=== PATIENT | male | born 1990 | race Caucasian/White ===

== ENCOUNTER 2018-01-18 18:40 | Inpatient (IN) ==
[2018-01-18] MEDS ORDERED: Naloxone 0.4 MG/ML INJ IVP ONE ×4 (19:13→23:25)
--- NOTE | 2018-01-18 19:15 | Emergency Department Note ---
Overdose - [facility] Narrative Medical decision making narrative: Will continue to give patient, 0.4 mg Narcan q5 minutes, while being monitored on end-tidal CO2, until the patient is no longer somnolent. Patient was started on Narcan drip. Chest x-ray showed bilateral lower lobe infiltrates suggestive of aspiration pneumonia, patient was started on Levaquin drip. Laboratory results are within normal limits, vital signs remained stable, end- tidal CO2 has been ranging from 38-41. Patient was discussed with hospitalist, and will be admitted for further treatment with Levaquin drip and Narcan as needed. Patient is agreeable to this plan, and agrees to stay overnight for further observation and treatment. - Medical Records Medical records reviewed: Yes I reviewed the patient's medical records. - Lab Data Lab results reviewed: Yes I reviewed the patient's lab results. Result diagrams: 01/18/18 20:43 01/18/18 20:43 Lab Results 01/18/18 01/18/18 Range/Units 20:43 20:43 WBC 9.3 (4.3-11.1) K/mcL RBC 4.18 L (4.19-5.50) M/mcL Hgb 13.4 (12.9-16.9) g/dL Hct 38.6 (37.5-50.1) % MCV 92.3 (83.0-100.0) fL MCH 32.1 (28.0-33.3) pg MCHC 34.7 (31.6-35.5) g/dL RDW 14.1 (11.5-14.5) % Plt Count 231 (140-400) K/mcL MPV 10.3 (9.4-12.4) fL Immature Gran % 0.6 (0-4) % Seg Neutrophils % 67.4 % Lymphocytes % 18.9 % Monocytes % 8.7 % Eosinophils % 3.6 % Basophils % 0.8 % Neutrophils # 6.3 (1.6-8.9) K/mcL Lymphocytes # 1.8 (0.6-4.6) K/mcL Monocytes # 0.8 (0.0-1.3) K/mcL Eosinophils # 0.3 (0.0-0.6) K/mcL Basophils # 0.1 (0.0-0.2) K/mcL Sodium 137 (136-145) mEq/L Potassium 3.7 (3.5-5.1) mEq/L Chloride 103 (98-107) mEq/L Carbon Dioxide 29 (23-29) mEq/L BUN 13 (6-20) mg/dL Creatinine 0.64 L (0.70-1.30) mg/dL Est GFR ( Amer) > 60 (> 60) Est GFR (Non-Af Amer) > 60 (> 60) BUN/Creatinine Ratio 20 (6-26) Glucose 88 (70-105) mg/dL Calculated Osmolality 284 (280-300) Calcium 9.0 (8.6-10.3) mg/dL - Radiology Data Radiology results reviewed: Yes I reviewed the patient's radiology results. Chest X-Ray 01/18/18 20:46 IMPRESSION: Bilateral lower lobe infiltrates, concerning for aspiration pneumonia. D/ / Jordon Darnell MD / Jordon Darnell MD Interpreting Provider: Jordon Darnell MD - EKG Data EKG attestation: Yes I reviewed and interpreted this EKG. EKG results narrative: EKG performed on 01/18/2018 at 2124 hrs. normal rate at ventricular rate of 76 bpm, regular rhythm, SD interval at 175, QRS duration 90, QT 380, QTC 450 with normal axis, without evidence of atrial or ventricular hypertrophy, no ST elevation or T-wave changes no Q waves. Early repol shown in V2, V3 consistent with age. When compared to previous EKG there are: no significant changes (EKG on 2016) Interpretation: normal EKG Overdose HPI - General Chief Complaint: ED Overdose Stated Complaint: Overdose Source: EMS Limitations: altered mental status Nursing Notes Reviewed: Yes Vital Signs Reviewed: Yes - History of Present Illness HPI Narrative: 27-year-old male presenting to the emergency department with overdose, per EMS. Per EMS patient was found on the concrete and internally. On arrival EMS administered half Narcan, 0.5 mg, and left nostril. At that point in time the patient opened eyes, pupils very pinpoint, emesis into the squad. 0.5 mg of Narcan was administered again into the right nostril, which really no effect with the patient. At that point in time, it was noted that he would only answer to sternal rub. Blood glucose was taken at 1836, was 91, vitals remained stable during transport. Upon evaluation, patient is somnolent, nonresponsive at this point in time to questioning. Patient oxygen saturation is 99% and vitals are stable at this point in time. History limited per patient presentation. - Related Data Home Medications Medication Instructions Recorded Confirmed Venlafaxine XR (24 HR) [Effexor XR] 150 mg PO DAILY 03/08/16 09/14/17 Previous Rx's Medication Instructions Recorded Acetaminophen [8Hr Arthritis Pain] 650 mg PO Q8H #20 tablet.er 09/14/17 Allergies Allergy/AdvReac Type Severity Reaction Status Date / Time ibuprofen [From Motrin] Allergy Hives Verified 08/18/17 15:24 Limitations: ROS unobtainable due to patients medical condition Past Medical History - Past Medical History Medical history: Reports: no medical history Surgical history: Reports: orthopedic, other Psychiatric history: Reports: anxiety, ADHD, depression, PTSD - Social History Smoking Status: Current every day smoker Smokeless Tobacco Status: No Alcohol use: Reports: occasionally Drug use: Reports: cocaine, opiates, marijuana, methamphetamine, IV Drug Use, prescription drug abuse Physical Exam - General Limitations: other (Somnolent) General appearance: in no apparent distress, appears intoxicated - Head Head exam: normocephalic - Eye Eye exam: Present: miosis - ENT ENT exam: normal exam, normal oropharynx, mucous membranes moist - Neck Neck exam: Present: normal inspection - Chest Chest inspection: Present: normal inspection - Respiratory Respiratory exam: Present: normal lung sounds bilaterally - Cardiovascular Cardiovascular exam: Present: regular rate, normal rhythm - Abdominal Exam Abdominal exam: Present: soft, Non-Tender - Extremities Exam Extremities exam: Present: normal inspection, full ROM. Absent: tenderness, pedal edema - Expanded Lower Extremity Exam Neurovascular/Tendon exam: Present: normal capillary refill Gait: observed and normal - Back Exam Back exam: Present: normal inspection, full ROM - Neurological Exam Neurological exam: Present: oriented X3 (After the Narcan drip patient was alert and oriented prior he was somnolent responsive only to sternal rub and loud voice) - Psychiatric Psychiatric exam: Present: other - Skin Skin exam: Present: warm, dry, intact - Other Other exam information: He was somnolent on until the effects of the Narcan kicked in which case he was slightly agitated and then cooperative Course Course Narrative: On evaluation, patient was somnolent, and given 0.4 mg IV of Narcan at 1920. While in the room, patient's sats are within normal limits, oxygen saturation is 99% With 10 resp per minute. Following Narcan, patient continues to be somnolent. Patient will be re evaluated in 5 minutes. - Reevaluation(s) Reevaluation #1: Following first dose of 0.4 mg Narcan, the patient continues to be somnolent. We will give another dose of 0.4 mg Narcan and reevaluate. Time: 19:39 Reevaluation #2: Patient continues to be somnolent, will give another 0.4 mg Narcan along with 500 mL bolus normal saline. And reevaluate in 5 minutes. Time: 19:58 Reevaluation #3: Patient continues to remain somnolent following the third dose of Narcan. Discussed with pharmacy starting a Narcan drip, will start 2.3 mg drip per hour. End tidal CO2 monitoring has been established. Patient will be admitted , CBC, BMP, chest x-ray and EKG have been ordered Time: 20:17 Additional Reevaluation(s): 2135: patient's chest x-ray showed to have bilateral lower lobe infiltrates suggestive of aspiration pneumonia patient was started on Levaquin. Patient was reevaluated at 2150 hrs. has been on Narcan drip at this point for about 25 minutes, with little change in somnolence. 2200: Patient responded well to Narcan drip and awoke, removed his IV, and asked to use the restroom. He was alert and oriented 3, conversational, ambulating on his own and stated that he remembers taking morphine 15 mg and benzos. He agrees to staying in the hospital, getting another IV, in continuing his Levaquin and narcotic and drip at this time. 2214: Upon reevaluation of the patient, he again was sleeping, and somnolent. 2216: Dr. Casas, spoke with the hospitalist and patient will be admitted at this time for continued Levaquin drip and Narcan. Vital Signs Temperature 98.0 F 07/08/18 18:41 Pulse Rate 95 01/18/18 18:41 Respiratory Rate 18 01/18/18 18:41 Blood Pressure 114/70 01/18/18 18:41 O2 Sat by Pulse Oximetry 99 01/18/18 18:41 Temperature 98.0 F 01/18/18 18:41 Pulse Rate 78 01/18/18 21:47 Respiratory Rate 11 01/18/18 21:47 Blood Pressure 117/79 01/18/18 21:47 O2 Sat by Pulse Oximetry 100 01/18/18 21:47 Oxygen Delivery Oxygen Delivery Room Air Disposition Clinical Impression: Poisoning by opiate or related narcotic Drug overdose Qualifiers: Encounter type: initial encounter Injury intent: accidental or unintentional Qualified Code(s): T50.901A - Poisoning by unspecified drugs, medicaments and biological substances, accidental (unintentional), initial encounter Aspiration pneumonia Qualifiers: Aspiration pneumonia type: due to vomit Laterality: bilateral Lung location: lower lobe of lung Qualified Code(s): J69.0 - Pneumonitis due to inhalation of food and vomit Disposition: Admitted As Inpatient Condition: Fair Referrals: Monty Martini MD [Primary Care Provider] - Forms: ED Satisfaction Letter Time of Disposition: 22:25
[2018-01-18] MEDS ORDERED: 0.9 % Sodium Chloride 500 ML IVC ONE (19:30)
[2018-01-18] MEDS ORDERED: SODIUM CHLORIDE 0.9% IVC SCH (20:30)
[2018-01-18] MEDS ORDERED: NALOXONE IVC SCH (20:30)
[2018-01-18 20:52] LABS: Basophils # 0.1 K/mcL (0.0-0.2); Basophils % 0.8 %; Eosinophils # 0.3 K/mcL (0.0-0.6); Eosinophils % 3.6 %; Hematocrit 38.6 % (37.5-50.1); Hemoglobin 13.4 g/dL (12.9-16.9); Immature Granulocytes % 0.6 % (0-4); Lymphocytes # 1.8 K/mcL (0.6-4.6); Lymphocytes % 18.9 %; Mean Corpuscular HGB Conc 34.7 g/dL (31.6-35.5); Mean Corpuscular Hemoglobin 32.1 pg (28.0-33.3); Mean Corpuscular Volume 92.3 fL (83.0-100.0); Mean Platelet Volume 10.3 fL (9.4-12.4); Monocytes # 0.8 K/mcL (0.0-1.3); Monocytes % 8.7 %; Neutrophils # 6.3 K/mcL (1.6-8.9); Platelet Count 231 K/mcL (140-400); Red Blood Count 4.18 M/mcL (4.19-5.50); Red Cell Distribution Width 14.1 % (11.5-14.5); Segmented Neutrophils % 67.4 %
[2018-01-18 21:14] LABS: BUN/Creatinine Ratio 20 (6-26); Blood Urea Nitrogen 13 mg/dL (6-20); Carbon Dioxide 29 mEq/L (23-29); Chloride 103 mEq/L (98-107); Glucose 88 mg/dL (70-105); Osmolality,Calculated 284 (280-300); Potassium 3.7 mEq/L (3.5-5.1); Sodium 137 mEq/L (136-145); eGFR For African Americans > 60 (> 60); eGFR For Non-African Americans > 60 (> 60)
--- NOTE | 2018-01-18 21:29 | Emergency Department Note ---
Disposition Clinical Impression: Poisoning by opiate or related narcotic Drug overdose Qualifiers: Encounter type: initial encounter Injury intent: accidental or unintentional Qualified Code(s): T50.901A - Poisoning by unspecified drugs, medicaments and biological substances, accidental (unintentional), initial encounter Disposition: Admitted As Inpatient Condition: Good Referrals: Monty Martini MD [Primary Care Provider] - Forms: ED Satisfaction Letter Time of Disposition: 22:18 General Adult HPI - General Chief complaint: ED Overdose Stated complaint: Overdose Source: EMS Limitations: other (Somnolent) - History of Present Illness Pain Scale: 0 - Related Data Home Medications Medication Instructions Recorded Confirmed Venlafaxine XR (24 HR) [Effexor XR] 150 mg PO DAILY 03/08/16 09/14/17 Previous Rx's Medication Instructions Recorded Acetaminophen [8Hr Arthritis Pain] 650 mg PO Q8H #20 tablet.er 09/14/17 Allergies Allergy/AdvReac Type Severity Reaction Status Date / Time ibuprofen [From Motrin] Allergy Hives Verified 08/18/17 15:24 Past Medical History - Past Medical History Medical history: Reports: no medical history Surgical history: Reports: orthopedic, other Psychiatric history: Reports: anxiety, ADHD, depression, PTSD - Social History Smoking Status: Current every day smoker Smokeless Tobacco Status: No Alcohol use: Reports: occasionally Drug use: Reports: cocaine, opiates, marijuana, methamphetamine, IV Drug Use, prescription drug abuse Physical Exam - General Limitations: other (Somnolent) General appearance: in no apparent distress, appears intoxicated Course - Reevaluation(s) Reevaluation #1: Attestation note I examined this patient and my medical decision-making was reviewed with the emergency medicine resident. I agree with the documented findings, disposition and treatment plan as described except to the extent set forth below. Patient seen with emergency medicine resident Dr. Shyanne Ferrer, Please see a copy of his note for details of the H&P, ED evaluation, management and disposition. I have independently evaluated the patient and confirmed appropriate portions of the history and physical exam. Briefly: 27-year-old male by EMS very little history patient continues to be somnolent. They said they found pill bottles and syringes by the patient was Dominelli by bystanders who called EMS. Patient was given 1 amp of Narcan with slight arousal comes in somnolent he got 3 separate doses of 0.4 mg IV he was still somnolent sepsis were fine but his PCO2 went up to 42. Patient is no external signs of trauma. He is maintaining his airway. However due to the fact that he requires multiple doses of Narcan Narcan drip is been ordered and is being started she is at 0.4 mg per hour patient has a screening labs and EKG. Admission anticipated, disposition pending Time: 21:22 Reevaluation #2: ED workup is complete. Chest x-ray radiology as bilateral lower lobe infiltrates suggestive or concerning for aspiration pneumonia. Patient was given IV Levaquin. Patient responded very well to his Narcan drip he pulled out his IV and attempted Aleve he was convinced to come back have another IV placed and he is mental state overnight. Discussed case with the hospitalist Dr. OCAMPO, who agreed with the patient overnight for observation and repeat dose of Narcan on a when necessary basis. Patient minute in stable condition. Provided a total of 55 minutes of critical care service for this patient. Time: 22:17 Vital Signs Temperature 98.0 F 01/18/18 18:41 Pulse Rate 95 01/18/18 18:41 Respiratory Rate 18 01/18/18 18:41 Blood Pressure 114/70 01/18/18 18:41 O2 Sat by Pulse Oximetry 99 01/18/18 18:41 Temperature 98.0 F 01/18/18 18:41 Pulse Rate 78 01/18/18 21:47 Respiratory Rate 11 01/18/18 21:47 Blood Pressure 117/79 01/18/18 21:47 O2 Sat by Pulse Oximetry 100 01/18/18 21:47 Oxygen Delivery Oxygen Delivery Room Air Medical Decision Making - Lab Data Result diagrams: 01/18/18 20:43 01/18/18 20:43 Lab Results 01/18/18 01/18/18 Range/Units 20:43 20:43 WBC 9.3 (4.3-11.1) K/mcL RBC 4.18 L (4.19-5.50) M/mcL Hgb 13.4 (12.9-16.9) g/dL Hct 38.6 (37.5-50.1) % MCV 92.3 (83.0-100.0) fL MCH 32.1 (28.0-33.3) pg MCHC 34.7 (31.6-35.5) g/dL RDW 14.1 (11.5-14.5) % Plt Count 231 (140-400) K/mcL MPV 10.3 (9.4-12.4) fL Immature Gran % 0.6 (0-4) % Seg Neutrophils % 67.4 % Lymphocytes % 18.9 % Monocytes % 8.7 % Eosinophils % 3.6 % Basophils % 0.8 % Neutrophils # 6.3 (1.6-8.9) K/mcL Lymphocytes # 1.8 (0.6-4.6) K/mcL Monocytes # 0.8 (0.0-1.3) K/mcL Eosinophils # 0.3 (0.0-0.6) K/mcL Basophils # 0.1 (0.0-0.2) K/mcL Sodium 137 (136-145) mEq/L Potassium 3.7 (3.5-5.1) mEq/L Chloride 103 (98-107) mEq/L Carbon Dioxide 29 (23-29) mEq/L BUN 13 (6-20) mg/dL Creatinine 0.64 L (0.70-1.30) mg/dL Est GFR ( Amer) > 60 (> 60) Est GFR (Non-Af Amer) > 60 (> 60) BUN/Creatinine Ratio 20 (6-26) Glucose 88 (70-105) mg/dL Calculated Osmolality 284 (280-300) Calcium 9.0 (8.6-10.3) mg/dL
[2018-01-18] MEDS ORDERED: Levofloxacin 750 MG/150 ML 750 MG/150 ML BAG IVPB ONE (21:30)
[2018-01-18] MEDS ORDERED: Naloxone 0.4 MG/ML INJ IVP PRN (23:30)
--- NOTE | 2018-01-18 23:38 | Internal Med History&Physical ---
Date of Encounter: 01/18/18 Time of Encounter: 22:00 Internal Medicine - H&P: HPI Chief complaint: Altered mental status Admitted From: Home Plans for Post Hospital Care: Home History of present illness: Mr. Sahni is a 27 year old male send by EMS to ER for altered mental status. Past medical history is significant for multiple drug abuse. Patient was found nonresponsive and was sent to ER by EMS. Patient was given Narcan by ER and his mental status has improved. Suspect drug overdose. When I see patient in ER, patient is still very drowsy, but can be wake-up by verbal stimulation. Patient has patent airway. In the emergency room, chest x-ray suspected bilateral aspiration. Patient has no cough or shortness of breath. Patient was admitted for further management. Past Med Surg Social Fam HX - Past Medical History Medical history: no medical history Additional medical history: fibula fracture. SMOKER. ANXIETY Psychiatric history: anxiety, ADHD, depression, PTSD - Past Surgical History Surgical History: orthopedic, other Additional surgical history: fracture L clavicle. removal of clavicle hardware. left leg fracture. right hand surg - Social History Smoking Status: Current every day smoker Smokeless Tobacco Status: No Alcohol use: occasionally Drug use: cocaine, opiates, marijuana, methamphetamine, IV Drug Use, prescription drug abuse - Family History Mother History Unknown: Yes Internal Medicine - H&P: Meds Venlafaxine XR (24 HR) [Effexor XR] 150 mg PO DAILY 03/08/16 [History] Acetaminophen [8Hr Arthritis Pain] 650 mg PO Q8H #20 tablet.er 09/14/17 [Rx] 3 Allergy/AdvReac Type Severity Reaction Status Date / Time ibuprofen [From Motrin] Allergy Hives Verified 08/18/17 15:24 All Systems PM: A 10-system review of systems was performed and is negative for pertinent findings except as documented above in the HPI. - Constitutional Vitals: Temp Pulse Resp BP Pulse Ox 98.0 F 82 11 114/71 100 01/18/18 18:41 01/18/18 22:54 01/18/18 22:54 01/18/18 22:54 01/18/18 22:54 General appearance: Present: A&O X 1, no acute distress - Head Head exam: Present: atraumatic, normocephalic - Eye Eye exam: Present: PERRL, conjuntiva pink, sclera anicteric Pupils: Present: PERRL - Neck Neck exam general surgery: Present: supple, trachea midline. Absent: lymphadenopathy - Respiratory Respiratory exam: Present: CTAB. Absent: accessory muscle use, rales, rhonchi, wheezes - Cardiovascular Cardiovascular exam: Present: RRR, +S1, +S2. Absent: diastolic murmur, gallop, rubs, systolic murmur - GI/Abdominal GI/Abdominal exam: Present: normal bowel sounds, soft, no peritoneal signs. Absent: distended, tenderness - Extremities Exam Extremities exam: Present: warm, radial pulses palpable and symmetrical. Absent : calf tenderness, cyanotic, pedal edema - Neurological Exam Neurological exam: Present: CN II-XII intact, no focal deficits. Absent: pronater drift, facial droop, speech deficit - Skin Skin exam: Present: dry, intact Internal Med - H&P Results - Labs CBC & Chem 7: 01/18/18 20:43 01/18/18 20:43 Labs: Short CBC 01/18/18 Range/Units 20:43 WBC 9.3 (4.3-11.1) K/mcL Hgb 13.4 (12.9-16.9) g/dL Hct 38.6 (37.5-50.1) % Plt Count 231 (140-400) K/mcL Neutrophils # 6.3 (1.6-8.9) K/mcL BMP 01/18/18 20:43 Sodium 137 Potassium 3.7 Chloride 103 Carbon Dioxide 29 BUN 13 Creatinine 0.64 L Glucose 88 Calcium 9.0 - Impressions ITS Impressions Chest X-Ray 01/18/18 20:46 IMPRESSION: Bilateral lower lobe infiltrates, concerning for aspiration pneumonia. D/ / Jordon Darnell MD / Jordon Darnell MD Interpreting Provider: Jordon Darnell MD - Assessment and plan (1) Poisoning by opiate or related narcotic Current Visit: Yes Status: Acute Assessment and plan: Patient was given Narcan by ER. Patient right now has a patent airway and no signs of respiratory depression. Will continue cardiac monitoring and pulse oximetry monitoring. Keep patient nothing by mouth, IV fluid, aspiration precautions. - Follow up liver and kidney function in a.m. (2) Drug overdose Current Visit: Yes Status: Acute Assessment and plan: Management as above Qualifiers: Encounter type: initial encounter Injury intent: accidental or unintentional Qualified Code(s): T50.901A - Poisoning by unspecified drugs, medicaments and biological substances, accidental (unintentional), initial encounter (3) Aspiration pneumonia Current Visit: Yes Status: Acute Assessment and plan: Minimal respiratory symptoms at this point. ER started Levaquin. Will continue Levaquin, and Flagyl for anaerobic coverage. Qualifiers: Aspiration pneumonia type: due to vomit Laterality: bilateral Lung location: lower lobe of lung Qualified Code(s): J69.0 - Pneumonitis due to inhalation of food and vomit - Time Spent With Patient Total time spent is greater than 50% in coordination of care (as documented) at patient's floor/unit and/or counseling patient: 40 minutes Greater than 35 minutes
[2018-01-18] MEDS ORDERED: Ondansetron 4 MG/2 ML VIAL IVP PRN (23:42)
[2018-01-19] MEDS: 0.9 % Sodium Chloride 1,000 ML IVC SCH ×2 (01:05→14:00)
[2018-01-19] MEDS: MetroNIDAZOLE 500 MG/100 ML 500 MG/100 ML BAG IVPB SCH ×3 (01:06→15:58)
[2018-01-19 05:03] LABS: Basophils # 0.1 K/mcL (0.0-0.2); Eosinophils # 0.3 K/mcL (0.0-0.6); Eosinophils % 3.9 %; Hematocrit 40.4 % (37.5-50.1); Hemoglobin 13.4 g/dL (12.9-16.9); Immature Granulocytes % 0.8 % (0-4); Lymphocytes # 1.6 K/mcL (0.6-4.6); Lymphocytes % 21.6 %; Mean Corpuscular HGB Conc 33.2 g/dL (31.6-35.5); Mean Corpuscular Hemoglobin 30.7 pg (28.0-33.3); Mean Corpuscular Volume 92.7 fL (83.0-100.0); Mean Platelet Volume 10.5 fL (9.4-12.4); Monocytes # 0.8 K/mcL (0.0-1.3); Monocytes % 11.4 %; Neutrophils # 4.4 K/mcL (1.6-8.9); Platelet Count 221 K/mcL (140-400); Red Blood Count 4.36 M/mcL (4.19-5.50); Red Cell Distribution Width 14.4 % (11.5-14.5); Segmented Neutrophils % 61.3 %
[2018-01-19 05:25] LABS: BUN/Creatinine Ratio 20 (6-26); Blood Urea Nitrogen 12 mg/dL (6-20); Carbon Dioxide 27 mEq/L (23-29); Chloride 106 mEq/L (98-107); Glucose 73 mg/dL (70-105); Osmolality,Calculated 286 (280-300); Phosphorous 3.9 mg/dL (2.7-4.5); Potassium 4.1 mEq/L (3.5-5.1); Sodium 139 mEq/L (136-145); eGFR For African Americans > 60 (> 60); eGFR For Non-African Americans > 60 (> 60)
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
[2018-01-19 11:04] LABS: Amphetamine Screen,Urine Negative ng/mL (Cutoff=1000); Barbiturate Screen,Urine Negative ng/mL (Cutoff=200); Benzodiazepines Screen,Urine Positive ng/mL (Cutoff=200); Cannabinoid Screen,Urine Positive ng/mL (Cutoff = 50); Cocaine Screen,Urine Negative ng/mL (Cutoff= 300); Opiate Screen,Urine Positive ng/mL (Cutoff=300); Phencyclidine Screen,Urine Negative ng/mL (Cutoff=25)
[2018-01-19] MEDS: Venlafaxine XR (24 HR) 75 MG CAP.ER.24H PO SCH (11:06)
[2018-01-19] MEDS: Nicotine 21 MG PATCH.TD24 TD SCH (11:06)
--- NOTE | 2018-01-19 19:07 | Electrocardiograph Report ---
[place] [id number] Test Date: 2018-01-18 Pat Name: Zachary Sahni Department: 102 Room: [facility] Gender: M [employer]: : 1990 Requested By: [id number] Order Number: [id number] Reading MD: Gonzalo Chávez Measurements Intervals [place] Rate: 76 P: 60 TX: 175 QRS: 51 QRSD: 90 T: 38 QT: 385 QTc: 415 Interpretive Statements SINUS RHYTHM Electronically Signed On 01-19-2018 19:05:46 EDT by Gonzalo Chávez
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
[2018-01-19] MEDS: Levofloxacin 750 MG/150 ML 750 MG/150 ML BAG IVPB SCH (21:09)
[2018-01-20] MEDS: MetroNIDAZOLE 500 MG/100 ML 500 MG/100 ML BAG IVPB SCH ×4 (00:02→23:48)
[2018-01-20 06:54] LABS: Basophils # 0.1 K/mcL (0.0-0.2); Basophils % 0.6 %; Eosinophils # 0.4 K/mcL (0.0-0.6); Eosinophils % 3.8 %; Hematocrit 41.9 % (37.5-50.1); Hemoglobin 14.1 g/dL (12.9-16.9); Immature Granulocytes % 0.5 % (0-4); Lymphocytes # 1.6 K/mcL (0.6-4.6); Lymphocytes % 16.9 %; Mean Corpuscular HGB Conc 33.7 g/dL (31.6-35.5); Mean Corpuscular Hemoglobin 31.2 pg (28.0-33.3); Mean Corpuscular Volume 92.7 fL (83.0-100.0); Mean Platelet Volume 10.9 fL (9.4-12.4); Monocytes % 11.1 %; Neutrophils # 6.2 K/mcL (1.6-8.9); Platelet Count 243 K/mcL (140-400); Red Blood Count 4.52 M/mcL (4.19-5.50); Segmented Neutrophils % 67.1 %
[2018-01-20 07:13] LABS: Alanine Aminotransferase 185 Units/L (7-52); Albumin 3.4 g/dL (3.5-5.7); Albumin/Globulin Ratio 1.6 (1.1-2.2); Alkaline Phosphatase 69 Units/L (34-104); Aspartate Amino Transferase 132 Units/L (13-39); BUN/Creatinine Ratio 11 (6-26); Bilirubin,Direct 0.2 mg/dL (0.0-0.2); Bilirubin,Indirect 0.3 mg/dL (0.0-1.2); Bilirubin,Total 0.5 mg/dL (0.3-1.0); Blood Urea Nitrogen 7 mg/dL (6-20); Calcium 8.7 mg/dL (8.6-10.3); Carbon Dioxide 27 mEq/L (23-29); Chloride 106 mEq/L (98-107); Globulin 2.1 g/dL (2.4-3.5); Glucose 91 mg/dL (70-105); Magnesium 1.7 mg/dL (1.6-2.6); Osmolality,Calculated 282 (280-300); Potassium 3.9 mEq/L (3.5-5.1); Sodium 137 mEq/L (136-145); Total Protein 5.5 g/dL (6.4-8.9); eGFR For African Americans > 60 (> 60); eGFR For Non-African Americans > 60 (> 60)
[2018-01-20] MEDS: Venlafaxine XR (24 HR) 75 MG CAP.ER.24H PO SCH (11:01)
[2018-01-20] MEDS: Levofloxacin 750 MG/150 ML 750 MG/150 ML BAG IVPB SCH (11:03)
[2018-01-20] MEDS: Nicotine 21 MG PATCH.TD24 TD SCH (11:10)
--- NOTE | 2018-01-20 16:57 | Consult Note ---
Date of Encounter: 01/20/18 Time of Encounter: 17:00 Assessment & Recommendation (1) Anxiety about health Current visit: Yes Status: Acute (2) Drug overdose Current visit: Yes Status: Acute Qualifiers: Encounter type: subsequent encounter Injury intent: accidental or unintentional Qualified Code(s): T50.901D - Poisoning by unspecified drugs, medicaments and biological substances, accidental (unintentional), subsequent encounter History of Present Illness Patient: known to practice within the last 3 years Requesting Physician: Kandace Arias MD Reason for consult: reevaluate History of present illness: Mr. Sahni is a 27 year old male . The patient was seen yesterday. But this was not a very good interview. I was asked to follow up. Chief complaint I did not intend to take an overdose. History of present illness. The patient is now able to provide more information regarding his overdose. He felt that he might of been misunderstood and some earlier statements that he made. The patient has stated that he was distressed over the of family members and began drinking and did not have intention to by suicide. The patient notes that his mental health treatment has been helpful for him in the past and that he has learned not to resort to suicide as a method of coping. The patient has had a sitter and is been able to sit quietly and not attempt suicide while under observation. The patient has been concerned about his psychosocial situation. He would like to stay with his mother for a while and then I get on the waiting list for homeless senior living. He has limited residential resources. The patient would like to start in outpatient mental health. CC: Kandace Arias MD Past Med Surg Social [facility] HX - Past Medical History Medical history: no medical history - Past Psychiatric History Psychiatric history: Reports: anxiety, previous psychiatric hospitalization Family psychiatric history: Unknown Family History of Suicide: Unknown - Past Surgical History Surgical History: orthopedic, other - Social History Smoking Status: Current every day smoker Smokeless Tobacco Status: No Alcohol use: occasionally Drug use: cocaine, opiates, marijuana, methamphetamine, IV Drug Use, prescription drug abuse - Family History Mother History Unknown: Yes Medications & Allergies Venlafaxine XR (24 HR) [Effexor XR] 150 mg PO DAILY 03/08/16 [History] Trazodone HCl 100 mg PO HS 01/19/18 [History] valACYclovir [Valtrex] 500 mg PO BID 01/19/18 [History] 3 Allergy/AdvReac Type Severity Reaction Status Date / Time ibuprofen [From Motrin] Allergy Hives Verified 01/19/18 07:35 Review of Systems Psychiatric: Reports: anxiety, mood swings Psychiatry Exam - Constitutional Vitals: Temp Pulse Resp BP Pulse Ox 97.9 F 71 14 119/91 97 01/20/18 13:00 01/20/18 13:00 01/20/18 13:00 01/20/18 13:00 01/20/18 13:00 General appearance: age & developmentally appropriate, well-groomed, well- nourished - Musculoskeletal Gait: normal Station: relaxed Strength & Tone: normal for patient - Psychiatric Patient Orientation: Yes Person, Yes Time, Yes Place Level of alertness: Alert Behavior: calm, cooperative, anxious, tearful Psychomotor activity: Slowed Eye Contact: Minimal Contact Mood Description: Anxious Affect description: congruent with mood, full range, dysphoric Speech Volume: Normal Speech pattern: normal rate, normal rhythm, normal tone, fluent, spontaneous Language & Vocabulary: consistent with education Thought Process: Linear, Goal Oriented Thought Content: No Suicidal ideation, No Homicidal ideation, No Overt delusions Perceptual Disturbances: No Auditory hallucinations, No Visual hallucinations Attention Span Ability: Capable of Focused Attention Memory Description: Immediate Intact Patient Reliability: Questionable Historian Fund of knowledge: Yes abstraction ability, Yes aware of current events Intelligence Estimate: Average Judgment: Fair Insight: Partial Results - Labs Labs: Laboratory Last Values WBC 9.3 K/mcL (4.3-11.1) 01/20/18 05:53 RBC 4.52 M/mcL (4.19-5.50) 01/20/18 05:53 Hgb 14.1 g/dL (12.9-16.9) 01/20/18 05:53 Hct 41.9 % (37.5-50.1) 01/20/18 05:53 MCV 92.7 fL (83.0-100.0) 01/20/18 05:53 MCH 31.2 pg (28.0-33.3) 01/20/18 05:53 MCHC 33.7 g/dL (31.6-35.5) 01/20/18 05:53 RDW 14.0 % (11.5-14.5) 01/20/18 05:53 Plt Count 243 K/mcL (140-400) 01/20/18 05:53 MPV 10.9 fL (9.4-12.4) 01/20/18 05:53 Immature Gran % 0.5 % (0-4) 01/20/18 05:53 Seg Neutrophils % 67.1 % 01/20/18 05:53 Lymphocytes % 16.9 % 01/20/18 05:53 Monocytes % 11.1 % 01/20/18 05:53 Eosinophils % 3.8 % 01/20/18 05:53 Basophils % 0.6 % 01/20/18 05:53 Neutrophils # 6.2 K/mcL (1.6-8.9) 01/20/18 05:53 Lymphocytes # 1.6 K/mcL (0.6-4.6) 01/20/18 05:53 Monocytes # 1.0 K/mcL (0.0-1.3) 01/20/18 05:53 Eosinophils # 0.4 K/mcL (0.0-0.6) 01/20/18 05:53 Basophils # 0.1 K/mcL (0.0-0.2) 01/20/18 05:53 Sodium 137 mEq/L (136-145) 01/20/18 05:53 Potassium 3.9 mEq/L (3.5-5.1) 01/20/18 05:53 Chloride 106 mEq/L (98-107) 01/20/18 05:53 Carbon Dioxide 27 mEq/L (23-29) 01/20/18 05:53 BUN 7 mg/dL (6-20) 01/20/18 05:53 Creatinine 0.62 mg/dL (0.70-1.30) L 01/20/18 05:53 Est GFR ( Amer) > 60 (> 60) 01/20/18 05:53 Est GFR (Non-Af Amer) > 60 (> 60) 01/20/18 05:53 BUN/Creatinine Ratio 11 (6-26) 01/20/18 05:53 Glucose 91 mg/dL (70-105) 01/20/18 05:53 Calculated Osmolality 282 (280-300) 01/20/18 05:53 Calcium 8.7 mg/dL (8.6-10.3) 01/20/18 05:53 Phosphorus 3.9 mg/dL (2.7-4.5) 01/19/18 04:49 Magnesium 1.7 mg/dL (1.6-2.6) 01/20/18 05:53 Total Bilirubin 0.5 mg/dL (0.3-1.0) 01/20/18 05:53 Direct Bilirubin 0.2 mg/dL (0.0-0.2) 01/20/18 05:53 Indirect Bilirubin 0.3 mg/dL (0.0-1.2) 01/20/18 05:53 AST 132 Units/L (13-39) H 01/20/18 05:53 ALT 185 Units/L (7-52) H 01/20/18 05:53 Alkaline Phosphatase 69 Units/L (34-104) 01/20/18 05:53 Serum Total Protein 5.5 g/dL (6.4-8.9) L 01/20/18 05:53 Albumin 3.4 g/dL (3.5-5.7) L 01/20/18 05:53 Globulin 2.1 g/dL (2.4-3.5) L 01/20/18 05:53 Albumin/Globulin Ratio 1.6 (1.1-2.2) 01/20/18 05:53 Urine Opiates Screen Positive ng/mL (Tverus=114) H 01/19/18 10:10 Ur Barbiturates Screen Negative ng/mL (Gyesmy=368) 01/19/18 10:10 Ur Phencyclidine Scrn Negative ng/mL (Cutoff=25) 01/19/18 10:10 Ur Amphetamines Screen Negative ng/mL (Upugpu=0988) 01/19/18 10:10 U Benzodiazepines Scrn Positive ng/mL (Msfoih=213) H 01/19/18 10:10 Urine Cocaine Screen Negative ng/mL (Cutoff= 300) 01/19/18 10:10 U Marijuana (THC) Screen Positive ng/mL (Cutoff = 50) H 01/19/18 10:10 Ur Drug Screen Interp See Below 01/19/18 10:10 Consult Discharge Plan - Plan Referrals: Monty Martini MD [Primary Care Provider] -
--- NOTE | 2018-01-20 21:28 | Internal Med Progress Note ---
Date of Encounter: 01/20/18 Time of Encounter: 14:30 - Assessment and plan (1) Drug overdose Current Visit: Yes Status: Acute Assessment and plan: Urine drug screen positive for BDZ, opiates, Marijuana; patient reports overdosing on Morphine, Oxycodone, BDZ that "he just found on the street"; currently improved and stable clinical condition; social psychologist consult pending; Qualifiers: Encounter type: subsequent encounter Injury intent: accidental or unintentional Qualified Code(s): T50.901D - Poisoning by unspecified drugs, medicaments and biological substances, accidental (unintentional), subsequent encounter (2) Aspiration pneumonia Current Visit: Yes Status: Acute Assessment and plan: chest XRay with possible B/L lower lobe Pneumonia, possible aspiration; not septic; continue IV Levaquin and Flagyl; saturating well on room air; Qualifiers: Aspiration pneumonia type: due to vomit Laterality: bilateral Lung location: lower lobe of lung Qualified Code(s): J69.0 - Pneumonitis due to inhalation of food and vomit (3) Acute encephalopathy Current Visit: Yes Status: Resolved Assessment and plan: currently at baseline mental status; (4) Suicidal ideation Current Visit: Yes Status: Acute Assessment and plan: h/o- SI that drove him to overdose; multiple life stressors; d/w Psychiatry, will reevaluate today; continue 1:1 sitter for now; (5) Depression with anxiety Current Visit: Yes Status: Chronic Assessment and plan: continue home dose of Effexor; needs outpatient Psychiatry f/up; (6) Tobacco abuse Current Visit: Yes Status: Chronic - Time Spent With Patient Total time spent is greater than 50% in coordination of care (as documented) at patient's floor/unit and/or counseling patient: - Subjective Interval history: Reports feeling better; endorses possible suicidal ideation which may have led him to overdose on drugs; reports he is homeless, striving for a better relationship with his mother, recently lost his brother and sister in a car accident; no fever/chills, chest pain, cough, dyspnea; - Constitutional Vitals: Temp Pulse Resp BP Pulse Ox 98.6 F 88 12 101/72 96 01/20/18 18:53 01/20/18 18:53 01/20/18 18:53 01/20/18 18:53 07/10/18 18:53 General appearance: Present: A&O X 3, no acute distress, answers questions appropriately - Respiratory Respiratory exam: Present: CTAB. Absent: accessory muscle use, rales, rhonchi, wheezes - Cardiovascular Cardiovascular exam: Present: RRR, +S1, +S2. Absent: diastolic murmur, gallop, rubs, systolic murmur - GI/Abdominal GI/Abdominal exam: Present: normal bowel sounds, soft, no peritoneal signs. Absent: distended, tenderness - Extremities Exam Extremities exam: Present: full ROM, warm, radial pulses palpable and symmetrical. Absent: calf tenderness, cyanotic, pedal edema Internal Medicine: Result - Labs CBC & Chem 7: 01/20/18 05:53 01/20/18 05:53 Labs: Short CBC 01/20/18 Range/Units 05:53 WBC 9.3 (4.3-11.1) K/mcL Hgb 14.1 (12.9-16.9) g/dL Hct 41.9 (37.5-50.1) % Plt Count 243 (140-400) K/mcL Neutrophils # 6.2 (1.6-8.9) K/mcL BMP 01/20/18 05:53 Sodium 137 Potassium 3.9 Chloride 106 Carbon Dioxide 27 BUN 7 Creatinine 0.62 L Glucose 91 Calcium 8.7 Liver Function 01/20/18 Range/Units 05:53 Total Bilirubin 0.5 (0.3-1.0) mg/dL Direct Bilirubin 0.2 (0.0-0.2) mg/dL AST 132 H (13-39) Units/L ALT 185 H (7-52) Units/L Alkaline Phosphatase 69 (34-104) Units/L Albumin 3.4 L (3.5-5.7) g/dL Consult Discharge Plan - Plan Referrals: Monty Martini MD [Primary Care Provider] -
[2018-01-21] MEDS: MetroNIDAZOLE 500 MG/100 ML 500 MG/100 ML BAG IVPB SCH (07:58)
[2018-01-21] MEDS: Nicotine 21 MG PATCH.TD24 TD SCH (07:58)
[2018-01-21] MEDS: Levofloxacin 750 MG/150 ML 750 MG/150 ML BAG IVPB SCH (07:59)
[2018-01-21] MEDS: Venlafaxine XR (24 HR) 75 MG CAP.ER.24H PO SCH (09:34)
[2018-01-21 11:08] VITALS: BP 130/91
--- NOTE | 2018-01-21 12:44 | Discharge Summary ---
- NOTES TO OUTPATIENT PROVIDER Notes to Outpatient Provider: Drug overdose with BDZ, opiates; depression and anxiety; cleared by Psychiatry for outpatient f/up; Date of Encounter: 01/21/18 Time of Encounter: 12:42 - Discharge Diagnosis (1) Drug overdose Priority: Primary Status: Acute Qualifiers: Encounter type: subsequent encounter Injury intent: accidental or unintentional Qualified Code(s): T50.901D - Poisoning by unspecified drugs, medicaments and biological substances, accidental (unintentional), subsequent encounter (2) Aspiration pneumonia Priority: Primary Status: Acute Qualifiers: Aspiration pneumonia type: due to vomit Laterality: bilateral Lung location: lower lobe of lung Qualified Code(s): J69.0 - Pneumonitis due to inhalation of food and vomit (3) Acute encephalopathy Priority: Primary Status: Resolved (4) Suicidal ideation Priority: Primary Status: Acute (5) Depression with anxiety Priority: Secondary Status: Chronic (6) Tobacco abuse Priority: Secondary Status: Chronic Hospital course: Mr. Sahni is a 27 year old male with h/o- PTSD, depression and substance abuse was brought in with altered mental status due to drug overdose. Urine drug screen was positive for opiates, BDZ, Marijuana. He improved with supportive care and IV hydration. He tolerates oral diet and is at baseline mentation. He is sad and tearful due to recent of his siblings in a car accident and him being homeless with no good relation with his parents. He thought he may have been "tired of this life" which prompted him to overdose on street drugs. Psychiatry was consulted and patient is no longer a risk to self/others and is cleared for discharge with close outpatient Psychiatry followup. He was treated with IV antibiotics for possible aspiration Pneumonia and he is being discharged with PO antibiotics to complete course; he is medically stable for discharge. assistant guest services manager has been consulted for safe discharge planning. Discharge discussed with: patient, nurse - Time Spent with Patient Total time spent providing and/or coordinating discharge services: Greater than 30 minutes (40 min) - Discharge Medications Prescriptions: Levofloxacin [Levaquin] 750 mg PO DAILY #3 tablet metroNIDAZOLE [Flagyl] 500 mg PO TID #9 tablet Home Medications: Venlafaxine XR (24 HR) [Effexor XR] 150 mg PO DAILY 03/08/16 [History] Trazodone HCl 100 mg PO HS 01/19/18 [History] valACYclovir [Valtrex] 500 mg PO BID 01/19/18 [History] Levofloxacin [Levaquin] 750 mg PO DAILY #3 tablet 01/21/18 [Rx] metroNIDAZOLE [Flagyl] 500 mg PO TID #9 tablet 01/21/18 [Rx] Allergies/Adverse Reactions: 3 Allergy/AdvReac Type Severity Reaction Status Date / Time ibuprofen [From Motrin] Allergy Hives Verified 01/19/18 07:35 Date of admission: 01/19/18 00:47 Primary care physician: Monty Martini MD Consults: 01/19/18 10:07 Consult to Psychiatry [CONS] Routine Consulting Provider: Psychiatry Evelyne Reason consult: Altered mental status Other reason and/or additional details: drug OD, depression, stress Call Completed: Yes 01/19/18 10:08 Consult to Client Specialist [CONS] Routine Reason for SW Consult: drug abuse 01/20/18 14:15 Consult to Psychiatry [CONS] Routine Consulting Provider: Psychiatry Evelyne Reason consult: Sitter/1:1 Other reason and/or additional details: Reports suicidal ideation and depression, homelessness Call Completed: Yes Discharging clinician: Kandace Arias Anticipated date of discharge: 01/21/18 - Constitutional Vitals: Temp Pulse Resp BP Pulse Ox 97.8 F 77 17 130/91 97 01/21/18 11:06 01/21/18 11:06 01/21/18 11:06 01/21/18 11:06 01/21/18 11:06 General appearance: Present: A&O X 3, no acute distress, answers questions appropriately - Patient Status Disposition: Home, Self-Care Condition: Good Functional capacity at discharge: independent ambulation Overall status at discharge: patient is progressing back to baseline - Discharge Instructions Instructions: Pneumonia (DC) Follow Up With: Monty Martini MD [Primary Care Provider] - Additional Instructions: F/up with Psychiatry in 1 week - Diet and Activity Activity: resume usual activities as tolerated Diet: advance to your usual diet, regular diet
== END 2018-01-21 15:12 | disposition home or self-care (01) | DRG 812 ==
LOC: EMEROO 18:40 → 2SOUTHHOLD 01-19 00:45 → SUATTDRO 01-19 00:47 → 2SOUTHHOLD 01-19 00:47
PROVIDERS: ADMIT Internal Medicine; ATTEND Internal Medicine